=== PATIENT | male | born 1970 | race Caucasian/White ===

== ENCOUNTER 2023-01-01 10:01 | Outpatient (REF) | payer BC, SELFPAY ==
[2023-01-01 13:54] LABS: Alanine Aminotransferase 150 U/L (0-40); Albumin Level 4.4 g/dL (3.5-5.0); Alkaline Phosphatase 55 U/L (39-117); Anion Gap 11 (12-20); Aspartate Amino Transferase 48 U/L (5-37); Bilirubin Total 0.6 mg/dL (0.0-1.0); Blood Urea Nitrogen 15 mg/dL (9-16); Calcium 9.6 mg/dL (8.4-10.2); Carbon Dioxide 27 mmol/L (22-29); Chloride 107 mmol/L (96-108); Estimated Glomerular Filt Rate > 60; Glucose Random 91 mg/dL (60-115); Magnesium 2.1 mg/dL (1.6-2.6); Potassium 4.2 mmol/L (3.3-5.1); Sodium 141 mmol/L (135-145); Total Protein 7.1 g/dL (6.5-8.0)
[2023-01-01 14:19] LABS: Thyroid Stimulating Hormone 1.77 uIU/mL (0.32-4.0)
== END 2023-01-01 10:02 | disposition home or self-care (01) ==
LOC: HO.MANLDS 10:01
PROVIDERS: Visit Provider Internal Medicine
DX: I48.91 Unspecified atrial fibrillation (principal)
CPT/HCPCS: 36415; 80053; 83735; 84443

== ENCOUNTER 2023-07-16 09:12 | Outpatient (REF) | payer BC, SELFPAY ==
[2023-07-16 13:43] LABS: MANUAL DIFF FLAG NO
[2023-07-16 13:49] LABS: Basophils Percent Auto 0.8 % (0-2); Hematocrit 44.1 % (42.0-52.0); Hemoglobin 15.3 g/dl (14.0-18.0); Imm Gran Abs Auto 0.01 X10*3/uL (0.00-0.03); Imm Gran Pct Auto 0.3 % (0.0-0.4); Lymphocytes Absolute Auto 0.8 X10*3/uL (1.2-4.9); Lymphocytes Percent Auto 21.2 % (20-40); Mean Corpuscular HGB Conc 34.7 g/dl (31.0-36.0); Mean Corpuscular Hemoglobin 32.8 pg (27.0-33.0); Mean Corpuscular Volume 94.6 fL (80.0-98.0); Monocytes Absolute Auto 0.4 X10*3/uL (0.1-1.2); Monocytes Percent Auto 11.3 % (2-11); Neutrophils Absolute Auto 2.6 x10*3/uL (2.0-8.3); Neutrophils Percent Auto 65.4 % (45-73); Platelet Count 216 X10*3/uL (160-400); Red Blood Count 4.66 X10*6/uL (4.60-5.80); Red Cell Distribution Width 12.2 % (11.0-16.0); White Blood Count 3.9 X10*3/uL (4.8-10.8)
[2023-07-16 14:14] LABS: Alanine Aminotransferase 31 U/L (0-40); Albumin Level 4.5 g/dL (3.5-5.0); Alkaline Phosphatase 50 U/L (39-117); Anion Gap 13 (12-20); Aspartate Amino Transferase 23 U/L (5-37); Bilirubin Total 0.7 mg/dL (0.0-1.0); Blood Urea Nitrogen 19 mg/dL (9-16); Calcium 9.9 mg/dL (8.4-10.2); Carbon Dioxide 25 mmol/L (22-29); Chloride 105 mmol/L (96-108); Cholesterol 233 mg/dL (<200); Estimated Glomerular Filt Rate > 60; Glucose Random 99 mg/dL (60-115); HDL Cholesterol 63 mg/dL (>40); LDL Cholesterol Calculated 144 mg/dL (<100); Sodium 139 mmol/L (135-145); Total Protein 7.5 g/dL (6.5-8.0); Triglycerides 131 mg/dL (<150)
[2023-07-16 14:34] LABS: Folate 6.4 ng/mL (> or = 4.0); Vitamin B12 303 pg/mL (200-900)
[2023-07-21 15:08] LABS: Testosterone, Total 372 ng/dL (250-1100)
== END 2023-07-16 09:13 | disposition home or self-care (01) ==
LOC: HO.MANLDS 09:12
PROVIDERS: Visit Provider Internal Medicine
DX: Z00.00 Encounter for general adult medical examination without abnormal findings (principal); Z12.5 Encounter for screening for malignant neoplasm of prostate; Z13.6 Encounter for screening for cardiovascular disorders; R53.83 Other fatigue
CPT/HCPCS: 36415; 80053; 80061; 82306; 82607; 82746; 84153; 84403; 85025

== ENCOUNTER 2024-07-23 10:26 | Outpatient (REF) | payer BC, SELFPAY ==
--- OUTSIDE RECORDS SUMMARY | 2024-07-23 11:15 | XMS_ITS | Continuity of Care Document ---
Author Organization [facility], [facility] Address [address] [place] [address] [place] [address] Assessment No assessment recorded. Plan of Treatment Reminders Order Date Submit Date Provider Last Modified By Organization Details Last Modified Time Details Appointments ANNUAL EXAM 2024 09:45A M DR PONCE Not available Not available Not available ANNUAL EXAM 2025 11:30A M DR PONCE Not available Not available Not available Lab CMP, serum or plasma 2024 025 [facility] (Centralized Electronic Ordering - All Locations), Patient Can Go To The Location Of Their Choice, [facility] [place] 07/23/2024 10:24:18 CBC 2024 025 [facility] (Centralized Electronic Ordering - All Locations), Patient Can Go To The Location Of Their Choice, [facility] [place] 07/23/2024 10:24:18 PSA, serum or plasma 2024 025 [facility] (Centralized Electronic Ordering - All Locations), Patient Can Go To The Location Of Their Choice, [facility] [place] 07/23/2024 10:24:18 lipid panel, blood 2024 025 [facility] (Centralized Electronic Ordering - All Locations), Patient Can Go To The Location Of Their Choice, [facility] [place] 07/23/2024 10:24:18 lyme disease igg+igm, serum, reflex western blot 2024 025 [facility], [address] [place] [address], [place], [address], 07/23/2024 10:25:29 babesia microti igg+igm Ab, serum 2024 025 [facility], [address] [place] [address], [id number], 07/23/2024 10:25:29 anaplasma phagocyto philum (hga/hge) igg+igm Ab, serum 2024 025 [facility], [address] [place] [address], [id number], 07/23/2024 10:25:29 Referral None recorded. Procedures None recorded. Surgeries None recorded. Imaging None recorded. Medication Orders None recorded. Patient TargetsNo targets recorded. Patient Instructions Encounter Date Encounter Id Patient Instructions Last Modified By Organization Details Last Modified Time 07/23/2024 [id number] pulse oximetry* Not available 07/23/2024 10:23:00 tick bite: care instructions Not available 07/23/2024 10:22:59 Reason for Referral None Reported. Results Created Date Observation Date Name Description Value Unit Range Abnormal Flag Note LastModifiedBy Organization Detail LastModifiedTime 07/24/1907/23/2024 pulse oxime try* Result 98 Not Available [facility] [address], [address], 07/22/2024 20:13:42 07/24/19 25 07/23/2024 pulse oxime try* Result 98 Not Available [facility] [address], [place], [address], 07/22/2024 20:13:42 Result Notes None recorded. Problems Name Problem SNOMED Code Status Onset Date Resolution Date Notes Provider Name and Address Organization Details Recorded Time Atrial fibrilla tion 52742021 Completed 202007/08/2023 Removal Reason: cardiove rt Chema Ponce DO [address] [place], [address], [facility] - [facility] 10:03:21 Disease of liver 336786773 Active 2020 Not Available [facility] 1 13:50:35 Erectile dysfunct ion 752398025 Active 2020 Not Available [facility] 13:50:35 Pain of wrist region 94930433 Active 2020 Not Available [facility] 1 13:50:35 Knee pain Active 2020 Not Available [facility] 13:50:35 Family history of malignan t neoplasm of prostate 228182949 Active 2020 Not Available [facility] 1 13:50:35 Hearing loss 50661831 Active 2022 Chema Ponce, DO [address] [place] [address], [address], [facility] 3 12:41:29 Multiple actinic keratose s 504135052 Active 2022 Chema Ponce, DO [address] [place] [address], [address], [facility] 3 12:50:04 [facility] hyperten jorge 23829227 Active 2022 Chema Ponce, DO [address] [place] [address], [address], [facility] 3 11:16:39 Hypercho lesterol emia 31633089 Active 2022 Chema Ponce, DO [address] [place] [address], [address], [facility] 3 11:20:50 Liver enzymes level above referenc e range 798706913 Active 2022 MELINA FERMIN [address] [place] [address], [address], [facility] 3 10:33:35 Fatigue 30626156 Active 2023 Chema Ponce, DO [address] [place] [address], [address], [facility] 4 12:06:25 Daytime somnolen ce 4785417344 00 Active 2023 Chema Ponce, DO [address] [place] [address], [address], [facility] 4 12:10:45 Headache associat ed with sexual activity 082401817 Active 2023 Chema Ponce DO [address] [place] [address], [address], [facility] 4 12:16:50 Thunderc lap headache 95346294 Active 2023 Chema Ponce [address], [address], [facility] 4 21:38:45 Reversib le cerebral vasocons triction syndrome 259887076 Active 2023 Chema Ponce DO [address] [place] [address], [address], [facility] 4 08:58:53 Atrial fibrilla tion 67525948 Active 2023 Chema Ponce [address], [address], [facility] 4 10:03:21 Tick bite 46903290 Active 2024 Chema Ponce [address], [address], [facility] 5 10:21:54 Problem Notes None recorded. Procedures Surgical History Date Name Laterality Status Provider Name and Address Organization Details Recorded Time [facility]end[facility] 10/[facility]/2020 15:14:18 Knee arthroscopy[facility]surge ry [facility] 15:14:30 vasectomy completed Sherinaomy [facility] 10/31/2020 15:14:42 Upper gi endoscopy performed [facility] 15:15:01 Imaging Results None recorded. Procedure Notes None recorded. Medical Equipment None Reported. Allergies No known drug allergies Medications Name Sig Start Date Stop Date Status Note LastModified by Organization Details LastModified Time verapamil ER (SR) 120 mg tablet,exte nded release TAKE 1 TABLET BY MOUTH EVERY DAY active Not Available Not Available No t Available amiodarone 200 mg tablet TAKE 2 TABLETS BY MOUTH EVERY DAY 08/28 completed Not Available Not Available Not Available metoprolol succinate ER 50 mg tablet,exte nded release 24 hr Take 1 tablet every day by oral route for 90 days. 07/23 completed Not Available Not Available Not Available propranolol 10 mg tablet TAKE 1 TABLET BY MOUTH THREE TIMES A DAY active Not Available Not Available No t Available indomethaci n 25 mg capsule TAKE 1 CAPSULE BY ORAL ROUTE DIRECTED FOR 30 DAYS. 07/23 completed Not Available Not Available Not Available metoprolol succinate ER 25 mg tablet,exte nded release 24 hr TAKE 1 TABLET BY MOUTH EVERY DAY 07/07 completed Not Available Not Available Not Available diltiazem 30 mg tablet TAKE 1 TABLET BY MOUTH FOUR TIMES A DAY FOR 14 DAYS 04/24 completed Not Available Not Available Not Available Eliquis 5 mg tablet TAKE 1 TABLET BY MOUTH TWICE A DAY 08/28 completed Not Available Not Available Not Available Vitals Date Recorded Body height Body mass index (BMI) Body weight Oxygen saturation Oxygen saturation in Arterial blood by Pulse oximetry Heart rate Systolic blood pressure Diastolic blood pressure Provider Name and Address Organization Details Last Updated DateTime 5 182.88 cm 29.1 kg/m2 46528.2 8 g 98 % 98 % 76 /min 122 mm[Hg] 78 mm[Hg] Meena Ledezma [facility] 5 09:53:59 Social History Question Answer Notes LastModified by Organizat ion Details LastModified Time Tobacco Smoking Status Never Smoker Arlette grimes [facility] 01/01/2023 09:18:27 How Much Tobacco Do You Chew? 5+/day Information not available 07/08/2023 What Was The Date Of Your Most Recent Tobacco Screening? 07/23/2024 [email or web address] Information not available 07/23/2024 Sex: Unknown Functional Status Question Answer Note LastModified by Organizat ion Details LastModified Time Do you or have you ever used any other forms of tobacco or nicotine? Yes Chew [email or web address] Information not available 10/31/2020 Do you or have you ever used smokeless tobacco? Currently chews tobacco Information not available 07/08/2023 Mental Status None recorded. Family History Relationship Description Onset Age of this Age Resolved Age Notes LastModified by Organization Details LastModified Time Father Carcinoma of prostate [email or web address] Not available 2024 09:41:31 Sister Bipolar disorder [email or web address] Not available 2024 09:41:31 Sister Schizophreni a [email or web address] Not available 2024 09:41:31 Sister Malignant tumor of colon [email or web address] Not available 2024 09:41:31 Maternal Grandmother Diabetes mellitus [email or web address] Not available 2020 15:18:11 Maternal Grandmother Harmful pattern of use of alcohol [email or web address] Not available 2020 15:18:26 Paternal Grandfather Myocardial infarction [email or web address] Not available 10/31 15:18:39 Son Cleft lip [email or web address] Not availabl e 07/23/2024 09:41:31 Mother Malignant tumor of pancreas [email or web address] Not available 2024 09:41:31 Mother Malignant neoplastic disease [email or web address] Not available 2024 09:41:31 Daughter Crohn's disease [email or web address] Not available 2024 09:41:31 Medical History No medical history recorded. Immunizations Vaccine Type Date Status Note Provider Nam e and Address Organization Details Recorded Time Tdap 1 completed Sheri grimes [facility] 10/31/2020 15:15:32 Influenza, split virus, quadrivalent, preservative 1 completed Chema Ponce DO [address] [place] [address], [address], [facility] 01/10/2021 15:41:45 Past Encounters Encounter ID Performer Location Encounter Start Date Encounter Closed Date Diagnosis/Indication Diagnosis SNOMED-CT Code Diagnosis ICD10 Code Diagnosis Note [id number] Chema Ponce DO [facility] [address] [address] 07/23/2024 09:40:31 07/23/2024 10:29:42 Active or passive immunization 715200219 Z23 utd Essential hypertension 17060880 I10 will increase dose to metoprolol bp excellent Atrial fibrillation 4943 6004 I48.91 doing great with pulse in 80-90 but steady and completely asymptomat ic exercising vigorous outdoorsma nwill be going for ablation Hypercholesterolemia 136 05453 E78.00 will cont diet control as LDL is at 150 and HDL is at 55 Well adult 148628200 Z00 .00 cont to do well and has lost some wgtno cpfollows cardiol for afib and PVC's Tick bite 28823714 S10.9 6XA W57.XXXA Health Concerns Section Related Observation LastModified by Organization Detai ls LastModified Time None Recorded Concern Status LastModified by Organization Details LastModified Time None Recorded Payers Encounter Date Sequence Insurance Name Policy Number Policy Oneal Covered Member ID Oneal Member ID Guarantor Name 07/23/2024 1 [facility] [place] [id number] Baron Kent [id number] Baron Kent Notes Date Note Type Note Provider Name and Address Organization Details Recorded Time 07/24/19 25 text/htm l Annual WellnessReported bypatient.Diet and Nutrition:healthy diet Fracture Risk:no history of fractures; no recent explained fracture; no sudden unexplained fractures; no previous musculoskeletal injuries Physical Activity:exercises on a regular basis; recent increase in physical activity; good physical condition Additional Lifestyle Factors:no tobacco use; no alcohol intake; stopped drinking alcohol Depression Risk:never feels sad, empty, or tearful; no loss of interest in activities; no significant changes in weight; no sleep disturbances or insomnia; no agitation; no loss of energy; no feelings of worthlessness or guilt; no thoughts of suicide; no history of depression; no history of mood disorders Hearing:no loss of hearing Vision:no vision problemsCare Management - Atrial FibrillationReported bypatient.Medications:comp liant with medication Prior Imaging:echocardiogram; recent ECG Associated Symptoms:no dizziness; no chest pain; no easy bruisability; no rapid heart rateCare Management - HyperlipidemiaReported bypatient.Control:usually well controlled; improving; at goal Complications:no coronary artery disease; no heart attack; no cardiovascular disease; no pancreatitis; no stroke here for annualdoing well overall no cp no sob had some pain in knee all winter on inner aspect of left knee Chema Ponce, DO [address] [facility] [facility], [place], [address], [facility] 07/23/2024 10:25:00
[2024-07-23 13:36] LABS: Hematocrit 44.6 % (42.0-52.0); Hemoglobin 15.5 g/dl (14.0-18.0); Mean Corpuscular HGB Conc 34.8 g/dl (31.0-36.0); Mean Corpuscular Hemoglobin 32.6 pg (27.0-33.0); Mean Corpuscular Volume 93.9 fL (80.0-98.0); Mean Platelet Volume 11.7 fL (9.4-12.4); Platelet Count 222 X10*3/uL (160-400); Red Blood Count 4.75 X10*6/uL (4.60-5.80); Red Cell Distribution Width 11.8 % (11.0-16.0); White Blood Count 4.5 X10*3/uL (4.8-10.8)
[2024-07-23 14:20] LABS: PSA,Total (Free>4and<10) 3.07 ng/mL (0.00-4.00)
[2024-07-23 14:32] LABS: Alanine Aminotransferase 22 U/L (0-40); Albumin Level 4.7 g/dL (3.5-5.0); Alkaline Phosphatase 55 U/L (39-117); Anion Gap 13 (12-20); Aspartate Amino Transferase 25 U/L (5-37); Bilirubin Total 0.7 mg/dL (0.0-1.0); Blood Urea Nitrogen 17 mg/dL (9-16); Calcium 9.7 mg/dL (8.4-10.2); Carbon Dioxide 24 mmol/L (22-29); Chloride 106 mmol/L (96-108); Estimated Glomerular Filt Rate > 60; Glucose Random 80 mg/dL (60-115); HDL Cholesterol 53 mg/dL (>40); Potassium 4.3 mmol/L (3.3-5.1); Sodium 139 mmol/L (135-145); Total Protein 7.5 g/dL (6.5-8.0)
[2024-07-24 05:59] LABS: LDL Cholesterol Direct 174 mg/dL (<100)
[2024-07-27 04:44] LABS: Lipoprotein A <10 nmol/L (<75)
[2024-07-27 23:13] LABS: A phagocytophilum IgG <1:64 (<1:64); A phagocytophilum IgM <1:20 (<1:20)
[2024-07-28 05:03] LABS: Lyme Abs Screen <0.90 index
[2024-07-28 10:37] LABS: Babesia IgG <1:64 titer (<1:64); Babesia IgM <1:20 titer (<1:20)
== END 2024-07-23 10:27 | disposition home or self-care (01) ==
LOC: HO.MANLDS 10:26
PROVIDERS: Visit Provider Internal Medicine
DX: S10.96XA Insect bite of unspecified part of neck, initial encounter (principal); I10 Essential (primary) hypertension; Z12.5 Encounter for screening for malignant neoplasm of prostate
CPT/HCPCS: 36415; 80053; 83695; 83718; 83721; 84153; 85027; 86617; 86618; 86666; 86753